=== PATIENT | female | born 1975 ===

== ENCOUNTER 2022-04-01 11:17 | Emergency (ER) | payer SELFPAY ==
[~2022-04-01] VITALS: Ht 170.2 cm; Wt 135.9 kg
[2022-04-01] MEDS ORDERED: NORCO 325 MG-51 TAB PO (13:00)
[2022-04-01 13:18] VITALS: BP 163/91; PULSE 61; TEMP 98.2
== END 2022-04-01 13:18 | disposition home or self-care (01) ==
LOC: COL.ER 11:17
DX: M25.562 Pain in left knee (principal); Z28.310 Unvaccinated for COVID-19
CPT/HCPCS: 31869; L1830; L1846